=== PATIENT | male | born 2000 | race Two or more races ===

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

== ENCOUNTER 2023-07-01 15:21 | Emergency (ER) | payer OTHER | END 2023-07-01 15:32 | disposition left against medical advice (07) | LOC: ER 15:21 | DX: M79.89 Other specified soft tissue disorders (principal); Z53.21 Procedure and treatment not carried out due to patient leaving prior to being seen by health care provider ==